=== PATIENT | female | born 1950 | race Caucasian/White ===

== ENCOUNTER 2021-07-18 11:26 | Observation (INO) | payer MEDICARE ==
[~2021-07-18] VITALS: Ht 147.3 cm; Wt 65.8 kg
[2021-07-18 12:46] VITALS: BP 149/56
[2021-07-18 14:26] LABS: BASOPHILS # (AUTO) 0.1 (0.0-0.1); BASOPHILS % 0.6 % (0.0-1.0); EOSINOPHILS # (AUTO) 0.4 (0.0-0.4); EOSINOPHILS % 4.9 % (0.0-6.0); HEMATOCRIT 31.8 % (34.2-44.1); HEMOGLOBIN 10.6 g/dL (12.0-16.0); LYMPHOCYTES # (AUTO) 1.9 (1.0-3.2); LYMPHOCYTES % 22.6 % (18.0-39.1); MEAN CORPUSCULAR HGB CONC 33.3 g/dL (31-35); MEAN CORPUSCULAR VOLUME 99.1 fL (81-99); MONOCYTES # (AUTO) 0.5 (0.2-0.8); MONOCYTES % 6.2 % (4.4-11.3); NEUTROPHILS # (AUTO) 5.4 (2.1-6.9); NEUTROPHILS % 65.3 % (38.7-80.0); PLATELET COUNT 204 x10e3/uL (140-360); RED BLOOD COUNT 3.21 x10e6/uL (3.6-5.1); RED CELL DISTRIBUTION WIDTH 12.9 % (11.7-14.4)
[2021-07-18] MEDS ORDERED: OMEPRAZOLE40 MG PO (14:40)
[2021-07-18] MEDS ORDERED: METFORMIN HCL500 MG PO (14:40)
[2021-07-18] MEDS ORDERED: LISINOPRIL10 MG PO (14:40)
[2021-07-18] MEDS ORDERED: TAMOXIFEN CITRA10 MG PO (14:40)
[2021-07-18] MEDS ORDERED: ATORVASTATIN CA20 MG PO (14:40)
[2021-07-18 14:46] LABS: ALBUMIN 2.9 g/dL (3.5-5.0); ALBUMIN/GLOBULIN RATIO 0.6 (0.8-2.0); ANION GAP 12.7 mmol/L (8-16); CREATININE, SERUM 1.39 mg/dL (0.57-1.11); POTASSIUM 4.7 mmol/L (3.5-5.1)
[2021-07-18 14:53] VITALS: BP 149/56
[2021-07-18 14:59] LABS: CREATINE KINASE 77 IU/L (29-168)
[2021-07-18 15:31] VITALS: BP 149/56
[2021-07-18 16:00] VITALS: BP 144/53
[2021-07-18] MEDS ORDERED: DEXTROSE 50% SYRINGE 50 ML IV PRN (16:15)
[2021-07-18] MEDS: Morphine 4mg Syringe 4 MG/ML INJ IV PRN ×2 (16:36→21:26)
[2021-07-18] MEDS: INSULIN REGULAR, HUMAN 100 UNIT/1 ML SQ SCH ×2 (16:36→21:25)
[2021-07-18 20:00] VITALS: BP 140/69
[2021-07-18] MEDS ORDERED: ATORVASTATIN 20 MG TAB PO SCH (21:00)
[2021-07-18 21:22] LABS: CREATINE KINASE 60 IU/L (29-168)
[2021-07-18] MEDS ORDERED: ACETAMINOPHEN 325 MG TAB PO PRN (22:15)
[2021-07-18] MEDS ORDERED: ONDANSETRON HCL INJ 2MG/ML 2ML 2 MG/ML VIAL IV PRN (22:15)
[2021-07-19] VITALS: BP 148/94
[2021-07-19 04:00] VITALS: BP 146/71
[2021-07-19 06:31] LABS: BASOPHILS # (AUTO) 0.1 (0.0-0.1); BASOPHILS % 0.8 % (0.0-1.0); EOSINOPHILS # (AUTO) 0.3 (0.0-0.4); EOSINOPHILS % 3.9 % (0.0-6.0); HEMATOCRIT 32.8 % (34.2-44.1); HEMOGLOBIN 10.8 g/dL (12.0-16.0); LYMPHOCYTES # (AUTO) 1.7 (1.0-3.2); LYMPHOCYTES % 23.2 % (18.0-39.1); MEAN CORPUSCULAR HGB CONC 32.9 g/dL (31-35); MEAN CORPUSCULAR VOLUME 100.3 fL (81-99); MONOCYTES # (AUTO) 0.5 (0.2-0.8); NEUTROPHILS # (AUTO) 4.9 (2.1-6.9); NEUTROPHILS % 65.8 % (38.7-80.0); PLATELET COUNT 194 x10e3/uL (140-360); RED BLOOD COUNT 3.27 x10e6/uL (3.6-5.1); RED CELL DISTRIBUTION WIDTH 13.1 % (11.7-14.4)
[2021-07-19 06:52] LABS: ALBUMIN/GLOBULIN RATIO 0.6 (0.8-2.0); ANION GAP 15.2 mmol/L (8-16); CALCIUM 7.9 mg/dL (8.4-10.2); CREATININE, SERUM 1.22 mg/dL (0.57-1.11); POTASSIUM 5.2 mmol/L (3.5-5.1)
[2021-07-19 07:18] LABS: CREATINE KINASE 52 IU/L (29-168)
[2021-07-19 07:29] VITALS: BP 148/70
[2021-07-19 08:00] LABS: CHOL/HDL RATIO 2.7 (3.0-3.6)
[2021-07-19] MEDS ORDERED: ASPIRIN EC81 MG PO (08:43)
[2021-07-19] MEDS ORDERED: MOBIC7.5 MG PO (08:43)
[2021-07-19] MEDS ORDERED: HEPARIN SOD (PORCINE) 5,000 UNIT/ML VIAL SC SCH (09:00)
[2021-07-19] MEDS ORDERED: ASPIRIN 325 MG TAB PO SCH (09:00)
[2021-07-19] MEDS ORDERED: PANTOPRAZOLE SOD 40 MG TABEC PO SCH (09:00)
[2021-07-19] MEDS: INSULIN REGULAR, HUMAN 100 UNIT/1 ML SQ SCH (09:38)
== END 2021-07-19 11:58 | disposition home or self-care (01) ==
LOC: MED/SURG2 12:39
PROVIDERS: ADMIT Internal Medicine; ATTEND Internal Medicine
DX: R07.89 Other chest pain (principal); Z85.3 Personal history of malignant neoplasm of breast; I10 Essential (primary) hypertension; E11.9 Type 2 diabetes mellitus without complications; N17.9 Acute kidney failure, unspecified; E66.9 Obesity, unspecified; E78.5 Hyperlipidemia, unspecified; Z90.11 Acquired absence of right breast and nipple; Z68.30 Body mass index [BMI] 30.0-30.9, adult; Z79.82 Long term (current) use of aspirin; Z79.84 Long term (current) use of oral hypoglycemic drugs; Z20.822 Contact with and (suspected) exposure to COVID-19
CPT/HCPCS: 36415 ×2; 71045; 80053 ×2; 80061; 82550 ×2; 82553 ×2; 82948 ×2; 83036; 84484 ×2; 85025 ×2; 93306; G0378 ×2; J1644; J2270; J2405; S0164; U0002